=== PATIENT | male | born 1970 | race Caucasian/White ===

== ENCOUNTER 2017-10-03 17:57 | Inpatient (IN) | payer MEDICAID ==
[~2017-10-03] VITALS: Ht 172.7 cm; Wt 88.5 kg
[~2017-10-03 17:57] MED LIST: ATORVASTATIN CA40 MG ORAL; BUPROPION XL300 MG ORAL; CELEXA20 MG ORAL; CITALOPRAM HBR40 M1 ORAL; DIABETA2.5 MG ORAL; GABAPENTIN800 MG ORAL; HYDROCODON-ACE1 EA18 PO; IBUPROFEN200 MG ORAL; IBUPROFEN600 MG ORAL; LIDOCAINE700 M1 TP; MIRTAZAPINE15 M3 ORAL; NORCO 10-325 T1 EACH ORAL; NORCO 5-325 TA1 EACH ORAL; OMEPRAZOLE40 M1 ORAL; WELLBUTRIN XL150 M1 ORAL; ZOFRAN8 MG ORAL
[2017-10-03 18:20] LABS: BASOPHILS % (AUTO) 1.1 % (0.0-2.0); EOSINOPHILS % (AUTO) 2.6 % (0.0-3.0); HEMATOCRIT 38.6 % (42.0-52.0); HEMOGLOBIN 13.6 G/DL (14.2-18.0); LYMPHOCYTES % (AUTO) 27.3 % (20.0-45.0); MEAN CORPUSCULAR VOLUME 91 FL (80-99); PLATELET COUNT 252 K/UL (150-450); RED BLOOD COUNT 4.22 M/UL (4.70-6.10); RED CELL DISTRIBUTION WIDTH 13.6 % (11.6-14.8); WHITE BLOOD COUNT 8.2 K/UL (4.8-10.8)
[2017-10-03 18:27] LABS: ANION GAP 9 mmol/L (5-15); BLOOD UREA NITROGEN 16 mg/dL (7-18); CALCIUM 9.3 MG/DL (8.5-10.1); CARBON DIOXIDE 27 MMOL/L (21-32); CHLORIDE 103 MMOL/L (98-107); CREATININE 1.2 MG/DL (0.55-1.30); POTASSIUM 4.1 MMOL/L (3.5-5.1); SODIUM 139 MMOL/L (136-145)
[2017-10-03 18:38] LABS: ALANINE AMINOTRANSFERASE 31 U/L (12-78); ALBUMIN 4.6 G/DL (3.4-5.0); ALBUMIN/GLOBULIN RATIO 1.6 (1.0-2.7); ALKALINE PHOSPHATASE 56 U/L (46-116); ASPARTATE AMINO TRANSFERASE 14 U/L (15-37); BILIRUBIN,TOTAL 0.6 MG/DL (0.2-1.0)
--- NOTE | 2017-10-03 18:46 | Emergency Room Report ---
History of Present Illness General Chief Complaint: Chest Pain Source: Patient Present Illness HPI 47-year-old female with history of CAD p/w chest pain for 2 hours. Chest pain started while at rest. Localized to substernal area, no radiation to back or other areas, sharp in nature, gradual in onset, +SOB. Denies palpitations, diaphoresis, n/v. . Denies fever, chills, cough, abd pain. Denies trauma. Patient states that he has one stent, takes aspirin and Plavix, took one baby aspirin today, also took 1 nitroglycerin which helped with the pain. His last cath was 2015. Allergies: Coded Allergies: CYCLOBENZAPRINE (Verified Allergy, Unknown, 08/10/15) SULFA (SULFONAMIDE ANTIBIOTICS) (Verified Allergy, Unknown, 07/29/15) Uncoded Allergies: FLEXARIL (Allergy, Unknown, 04/25/15) SULFAS (Allergy, Unknown, 04/25/15) Patient History Past Medical History: see triage record Past Surgical History: none Pertinent Family History: none Reviewed Nursing Documentation: PMH: Agreed, PSxH: Agreed Nursing Documentation-PMH Past Medical History: No History, Except For Hx Hypertension: No Hx Pacemaker: No Hx Asthma: No Hx Diabetes: Yes - Type 2 Hx Cancer: No Hx Gastrointestinal Problems: No Hx Dialysis: No Hx Neurological Problems: No Hx Cerebrovascular Accident: No Hx Seizures: No Review of Systems All Other Systems: negative except mentioned in HPI Physical Exam Vital Signs Date Time Temp Pulse Resp B/P (MAP) Pulse Ox O2 Delivery O2 Flow Rate FiO2 10/03/17 18:02 97.9 71 20 133/76 97 Room Air 97.9 Sp02 EP Interpretation: reviewed, normal General Appearance: alert, GCS 15, non-toxic, moderate distress Head: normocephalic, atraumatic Eyes: bilateral eye normal inspection, bilateral eye PERRL, bilateral eye EOMI ENT: normal ENT inspection, normal pharynx, normal voice, moist mucus membranes Neck: normal inspection, full range of motion, supple Respiratory: normal inspection, lungs clear, normal breath sounds, no respiratory distress, no retraction, no wheezing, speaking full sentences, chest symmetrical Cardiovascular #1: normal inspection, regular rate, rhythm, no edema, normal capillary refill Cardiovascular #2: 2+ radial (R), 2+ radial (L) Gastrointestinal: normal inspection, non tender, soft, non-distended, no guarding Genitourinary: no CVA tenderness Musculoskeletal: normal inspection, back normal, normal range of motion, non- tender Neurologic: normal inspection, alert, oriented x3, responsive, motor strength/ tone normal, sensory intact, normal gait, speech normal Psychiatric: normal inspection, judgement/insight normal, memory normal Skin: normal inspection, normal color, no rash, warm/dry, well hydrated, normal turgor Medical Decision Making Diagnostic Impression: Primary Impression: ACS (acute coronary syndrome) ER Course 47-year-old male with chest pain DDX: ACS vs. CHF vs. pneumonia vs. gastritis/GERD vs. pneumothorax Plan: IV access, obtain labs including troponin, EKG, CXR ASA ER course: pt already took ASA at home given toradol for pain Patient has remained on a monitor, HD stable, chest pain improved. Disposition: Patient requires admission for chest pain. D/W hospitalist Dr Harrington Please note that this Emergency Department Report was dictated using Swypemaintenance carpenter technology software, occasionally this can lead to erroneous entry secondary to interpretation by the dictation equipment. EKG Diagnostic Results EP Interpretation: Yes Rate: normal Rhythm: NSR ST Segments: No acute changes ASA given to patient: Yes Rhythm Strip EP Interpretation: Yes Rate: 70 Rhythm: NSR, no PVCs, no ectopy Chest X-ray CXR: Ordered: Yes 1 view Indication: Chest pain EP interpretation: Yes Interpretation: No consolidation, no effusion, no PTX, no acute cardiopulmonary disease Impression: No acute disease Electronically signed by Miguel Hurst MD Laboratory Tests Test 10/03/17 18:05 White Blood Count 8.2 K/UL (4.8-10.8) Red Blood Count 4.22 M/UL (4.70-6.10) L Hemoglobin 13.6 G/DL (14.2-18.0) L Hematocrit 38.6 % (42.0-52.0) L Mean Corpuscular Volume 91 FL (80-99) Mean Corpuscular Hemoglobin 32.1 PG (27.0-31.0) H Mean Corpuscular Hemoglobin Concent 35.1 G/DL (32.0-36.0) Red Cell Distribution Width 13.6 % (11.6-14.8) Platelet Count 252 K/UL (150-450) Mean Platelet Volume 7.5 FL (6.5-10.1) Neutrophils (%) (Auto) 60.0 % (45.0-75.0) Lymphocytes (%) (Auto) 27.3 % (20.0-45.0) Monocytes (%) (Auto) 9.0 % (1.0-10.0) Eosinophils (%) (Auto) 2.6 % (0.0-3.0) Basophils (%) (Auto) 1.1 % (0.0-2.0) Sodium Level 139 MMOL/L (136-145) Potassium Level 4.1 MMOL/L (3.5-5.1) Chloride Level 103 MMOL/L (98-107) Carbon Dioxide Level 27 MMOL/L (21-32) Anion Gap 9 mmol/L (5-15) Blood Urea Nitrogen 16 mg/dL (7-18) Creatinine 1.2 MG/DL (0.55-1.30) Estimate Glomerular Filtration Rate > 60 mL/min (>60) Glucose Level 88 MG/DL (74-106) Calcium Level 9.3 MG/DL (8.5-10.1) Total Bilirubin 0.6 MG/DL (0.2-1.0) Aspartate Amino Transferase (AST) 14 U/L (15-37) L Alanine Aminotransferase (ALT) 31 U/L (12-78) Alkaline Phosphatase 56 U/L (46-116) Troponin I 0.000 ng/mL (0.000-0.056) Pro-B-Type Natriuretic Peptide 52 pg/mL (0-125) Total Protein 7.5 G/DL (6.4-8.2) Albumin 4.6 G/DL (3.4-5.0) Globulin 2.9 g/dL Albumin/Globulin Ratio 1.6 (1.0-2.7) Last Vital Signs Date Time Temp Pulse Resp B/P (MAP) Pulse Ox O2 Delivery O2 Flow Rate FiO2 10/03/17 18:25 71 20 Room Air 10/03/17 18:02 97.9 133/76 97 97.9 Miguel Hurst M.D. Oct 03, 2017 18:46
[2017-10-03] MEDS ORDERED: Ketorolac 30mg Inj IV ONE (19:00)
[2017-10-03] MEDS ORDERED: Aspirin Baby 81mg ORAL ONE (19:00)
[2017-10-03] MEDS ORDERED: ZOFRAN4 M3 ORAL (19:10)
[2017-10-03] MEDS ORDERED: ASPIRIN81 MG ORAL (19:17)
[2017-10-03] MEDS ORDERED: VITAMIN B-12500 MCG (19:18)
[2017-10-03] MEDS ORDERED: FERROUS SULFAT325 MG (19:21)
[2017-10-03] MEDS ORDERED: GINKGO BILOBA120 M1 (19:22)
[2017-10-03] MEDS ORDERED: Morphine Sulfate 4mg/ml Inj IVP ONE (20:15)
[2017-10-03 21:35] VITALS: BP 126/63
[2017-10-03 22:27] VITALS: BP 120/65
[2017-10-03] MEDS ORDERED: Nitroglycerin Patch 0.1mg TDERMAL PRN (23:30)
[2017-10-03] MEDS ORDERED: Morphine Sulfate 2mg/ml Inj IM PRN (23:30)
--- NOTE | 2017-10-04 11:00 | Diagnostic Imaging Report ---
Indication: Chest pain Comparison: 07/29/2015 A single view chest radiograph was obtained. Findings: Cardiomediastinal appearance is within normal limits for age. Pulmonary vascularity is appropriate. The diaphragmatic contour is smooth and costophrenic angles are sharp. No pleural effusions are identified. The bones are unremarkable. Impression: No acute findings
--- NOTE | 2017-10-05 14:32 | Discharge Summary ---
Discharge Summary Hospital Course Date of Admission Oct 03, 2017 at 20:34 Date of Discharge Oct 04, 2017 at 00:46 Admitting Diagnosis ACUTE CORONARY SYNDROME HPI Timothy Marti is a 47 year old male who was admitted on Oct 03, 2017 at 20:34 for Acute Coronary Syndrome Hospital Course [id number] Discharge Discharge Disposition Patient left AMA Discharge Diagnoses: Madeline Petersen NP Oct 05, 2017 14:31
--- NOTE | 2017-10-05 23:15 | Discharge Summary 2 SIG ---
DATE OF ADMISSION: 10/03/2017 DATE OF DISCHARGE: 10/04/2017 BRIEF HOSPITAL COURSE: The patient is a 47-year-old male with history of coronary artery disease, presented to the hospital for complaints of chest pain that occurred while at rest located at the substernal area with no radiation to back or other areas. It was described to be sharp in nature and had gradual onset with accompanying shortness of breath. No nausea. No vomiting. No diaphoresis. No palpitations. He was evaluated in the ED. EKG was in normal sinus rhythm. He was given aspirin. Chest x-ray showed no acute disease. Initial troponin was negative. He was planned admission to the telemetry under the service of Dr. Johnson. However, the patient signed out against medical advice from ED. FINAL DIAGNOSIS: Chest pain, possible acute coronary syndrome. DISPOSITION: The patient left AMA. Shashank Garcia M.D. I have been assigned to dictate discharge summary on this account and I was not involved in the patient's management. Madeline Petersen N.P. DR: ABDIRAHMAN JOB#: [id number] CC:
--- NOTE | 2017-10-11 16:10 | Cardiology Report ---
APPROVED REPORT EKG Measurement Heart [id number] Normal sinus rhythm Normal ECG
== END 2017-10-04 00:46 | disposition left against medical advice (07) | DRG 198 ==
LOC: EMR 18:30 → 2E 20:34 → EDBEDREQ 21:17
DX: I25.110 Atherosclerotic heart disease of native coronary artery with unstable angina pectoris (principal); Z88.2 Allergy status to sulfonamides; Z53.21 Procedure and treatment not carried out due to patient leaving prior to being seen by health care provider; Z79.82 Long term (current) use of aspirin; Z98.61 Coronary angioplasty status
CPT/HCPCS: 36415; 71045; 80053; 83880; 84484; 85025; 93005; 96372; 96374; 96375; 99284

== ENCOUNTER 2017-10-05 12:09 | Emergency (ER) | payer MEDICAID ==
[~2017-10-05] VITALS: Ht 170.2 cm; Wt 88.5 kg
[~2017-10-05 12:09] MED LIST changes: +ASPIRIN81 MG ORAL; +FERROUS SULFAT325 MG; +GINKGO BILOBA120 M1; +VITAMIN B-12500 MCG; +ZOFRAN4 M3 ORAL
--- NOTE | 2017-10-05 12:20 | Emergency Room Report ---
History of Present Illness General Chief Complaint: Chest Pain Source: Patient, EMS Present Illness HPI 47-year-old male, history of CAD, 1 stent, p/w chest pain for 2 hours. Patient states that he was just sitting at rest, chest pain left-sided radiating to arm. He took 3 baby aspirin. Helped somewhat. Patient was here in the emergency room 2 days ago, was admitted for ACS, however patient left AGAINST MEDICAL ADVICE Allergies: Coded Allergies: CYCLOBENZAPRINE (Verified Allergy, Unknown, 08/10/15) SULFA (SULFONAMIDE ANTIBIOTICS) (Verified Allergy, Unknown, 07/29/15) Uncoded Allergies: FLEXARIL (Allergy, Unknown, 04/25/15) SULFA (Allergy, Unknown, 10/05/17) SULFAS (Allergy, Unknown, 04/25/15) Patient History Past Medical History: see triage record Past Surgical History: none Pertinent Family History: none Reviewed Nursing Documentation: PMH: Agreed, PSxH: Agreed Nursing Documentation-PMH Past Medical History: No History, Except For Hx Cardiac Problems: Yes - [place]/ stents Hx Hypertension: No Hx Pacemaker: No Hx Asthma: No Hx Diabetes: Yes Hx Cancer: No Hx Gastrointestinal Problems: No Hx Dialysis: No History Of Psychiatric Problem: Yes - Depression Hx Neurological Problems: No Hx Cerebrovascular Accident: No Hx Seizures: No Review of Systems All Other Systems: negative except mentioned in HPI Physical Exam Vital Signs Date Time Temp Pulse Resp B/P (MAP) Pulse Ox O2 Delivery O2 Flow Rate FiO2 10/05/17 11:47 97.5 75 16 120/73 96 Room Air 97.5 Sp02 EP Interpretation: reviewed, normal General Appearance: mild distress Head: normocephalic, atraumatic Eyes: bilateral eye normal inspection, bilateral eye PERRL, bilateral eye EOMI ENT: normal ENT inspection, normal pharynx, normal voice, moist mucus membranes Neck: normal inspection, full range of motion, supple Respiratory: normal inspection, lungs clear, normal breath sounds, no respiratory distress, no retraction, no wheezing, speaking full sentences, chest symmetrical Cardiovascular #1: normal inspection, regular rate, rhythm, no edema, normal capillary refill Cardiovascular #2: 2+ radial (R), 2+ radial (L) Gastrointestinal: normal inspection, non tender, soft, non-distended, no guarding Genitourinary: no CVA tenderness Musculoskeletal: normal inspection, back normal, normal range of motion, non- tender Neurologic: normal inspection, alert, oriented x3, responsive, motor strength/ tone normal, sensory intact, normal gait, speech normal Psychiatric: normal inspection, judgement/insight normal, memory normal Skin: normal inspection, normal color, no rash, warm/dry, well hydrated, normal turgor Medical Decision Making Diagnostic Impression: Primary Impression: Chest pain ER Course 47-year-old male with chest pain Recently admitted for ACS and then left AGAINST MEDICAL ADVICE DDX: ACS vs. CHF vs. pneumonia vs. gastritis/GERD vs. pneumothorax Plan: IV access, obtain labs including troponin, EKG, CXR Patient already took 3 baby aspirin ER course: Troponin is negative, patient's vital signs have been normal. I offered the patient pain medication, states that nothing works except for morphine He was complaining of persistent pain, states that he wanted to leave AGAINST MEDICAL ADVICE, he was ambulating around the emergency room talking ptosis her on the phone. Was very angry, not in any respiratory distress Calmly told patient that he has to stay in the emergency room and be admitted for further workup He states that he wants to leave to go to another ED Patient is clinically sober, is free from from distracting injury, and has intact judgement and capacity to decide to leave against medical advice. Patient verbalized understanding of my concern and my need to do admit patient and do further workup, but patient states that he wants opiates only or else he will leave. I explained to patient the risks of leaving AMA and patient informed that if they he/she leaves, they could get worse, he could become become critically ill, possibly become disabled or . Patient verbalized back to me understanding of these risks but still wants to leave. Disposition: Patient left AMA Please note that this Emergency Department Report was dictated using Yatangolegal project manager technology software, occasionally this can lead to erroneous entry secondary to interpretation by the dictation equipment. EKG Diagnostic Results EP Interpretation: Yes Rate: normal Rhythm: NSR ST Segments: No acute changes ASA given to patient: Y Rhythm Strip EP Interpretation: Yes Rate: 70 Rhythm: NSR, no PVCs, no ectopy Chest X-ray CXR: Ordered: Yes 1 view Indication: Chest pain EP interpretation: Yes Interpretation: No consolidation, no effusion, no PTX, no acute cardiopulmonary disease Impression: No acute disease Electronically signed by Miguel Hurst MD Laboratory Tests Test 10/05/17 12:15 White Blood Count 7.3 K/UL (4.8-10.8) Red Blood Count 4.21 M/UL (4.70-6.10) L Hemoglobin 13.8 G/DL (14.2-18.0) L Hematocrit 38.6 % (42.0-52.0) L Mean Corpuscular Volume 92 FL (80-99) Mean Corpuscular Hemoglobin 32.8 PG (27.0-31.0) H Mean Corpuscular Hemoglobin Concent 35.8 G/DL (32.0-36.0) Red Cell Distribution Width 13.5 % (11.6-14.8) Platelet Count 223 K/UL (150-450) Mean Platelet Volume 8.1 FL (6.5-10.1) Neutrophils (%) (Auto) 63.5 % (45.0-75.0) Lymphocytes (%) (Auto) 24.9 % (20.0-45.0) Monocytes (%) (Auto) 8.4 % (1.0-10.0) Eosinophils (%) (Auto) 2.3 % (0.0-3.0) Basophils (%) (Auto) 0.8 % (0.0-2.0) Sodium Level 140 MMOL/L (136-145) Potassium Level 3.9 MMOL/L (3.5-5.1) Chloride Level 105 MMOL/L (98-107) Carbon Dioxide Level 24 MMOL/L (21-32) Anion Gap 11 mmol/L (5-15) Blood Urea Nitrogen 14 mg/dL (7-18) Creatinine 1.0 MG/DL (0.55-1.30) Estimate Glomerular Filtration Rate > 60 mL/min (>60) Glucose Level 76 MG/DL (74-106) Calcium Level 8.7 MG/DL (8.5-10.1) Total Bilirubin 0.6 MG/DL (0.2-1.0) Aspartate Amino Transferase (AST) 14 U/L (15-37) L Alanine Aminotransferase (ALT) 31 U/L (12-78) Alkaline Phosphatase 90 U/L (46-116) Troponin I 0.000 ng/mL (0.000-0.056) Pro-B-Type Natriuretic Peptide 41 pg/mL (0-125) Total Protein 7.3 G/DL (6.4-8.2) Albumin 3.9 G/DL (3.4-5.0) Globulin 3.4 g/dL Albumin/Globulin Ratio 1.1 (1.0-2.7) Last Vital Signs Date Time Temp Pulse Resp B/P (MAP) Pulse Ox O2 Delivery O2 Flow Rate FiO2 10/05/17 11:47 97.5 75 16 120/73 96 Room Air 97.5 Disposition: AGAINST MEDICAL ADVICE Condition: Stable Miguel Hurst M.D. Oct 05, 2017 12:20
[2017-10-05 12:35] VITALS: BP 120/73
[2017-10-05 12:48] LABS: ANION GAP 11 mmol/L (5-15); BLOOD UREA NITROGEN 14 mg/dL (7-18); CALCIUM 8.7 MG/DL (8.5-10.1); CARBON DIOXIDE 24 MMOL/L (21-32); CHLORIDE 105 MMOL/L (98-107); POTASSIUM 3.9 MMOL/L (3.5-5.1); SODIUM 140 MMOL/L (136-145)
[2017-10-05 12:59] LABS: ALBUMIN 3.9 G/DL (3.4-5.0); ALBUMIN/GLOBULIN RATIO 1.1 (1.0-2.7); ALKALINE PHOSPHATASE 90 U/L (46-116); BILIRUBIN,TOTAL 0.6 MG/DL (0.2-1.0)
[2017-10-05 13:03] LABS: BASOPHILS % (AUTO) 0.8 % (0.0-2.0); EOSINOPHILS % (AUTO) 2.3 % (0.0-3.0); HEMATOCRIT 38.6 % (42.0-52.0); HEMOGLOBIN 13.8 G/DL (14.2-18.0); LYMPHOCYTES % (AUTO) 24.9 % (20.0-45.0); MEAN CORPUSCULAR VOLUME 92 FL (80-99); MONOCYTES % (AUTO) 8.4 % (1.0-10.0); NEUTROPHILS % (AUTO) 63.5 % (45.0-75.0); PLATELET COUNT 223 K/UL (150-450); RED BLOOD COUNT 4.21 M/UL (4.70-6.10); RED CELL DISTRIBUTION WIDTH 13.5 % (11.6-14.8); WHITE BLOOD COUNT 7.3 K/UL (4.8-10.8)
[2017-10-05 13:09] LABS: ALANINE AMINOTRANSFERASE 31 U/L (12-78); ASPARTATE AMINO TRANSFERASE 14 U/L (15-37)
[2017-10-05 13:17] VITALS: BP 120/73
--- NOTE | 2017-10-05 13:34 | Diagnostic Imaging Report ---
Indication: Chest pain Comparison: 10/03/2017 A single view chest radiograph was obtained. Findings: Cardiomediastinal appearance is within normal limits for age. Pulmonary vascularity is appropriate. The diaphragmatic contour is smooth and costophrenic angles are sharp. No pleural effusions are identified. The bones are unremarkable. Impression: No acute findings
--- NOTE | 2017-10-08 16:37 | Cardiology Report ---
APPROVED REPORT EKG Measurement Heart [id number] Normal sinus rhythm Normal ECG
== END 2017-10-05 13:18 | disposition left against medical advice (07) ==
LOC: EDBD 12:09 → EMR 12:15
DX: I25.10 Atherosclerotic heart disease of native coronary artery without angina pectoris (principal); I25.2 Old myocardial infarction; Z95.5 Presence of coronary angioplasty implant and graft; E11.9 Type 2 diabetes mellitus without complications; Z88.2 Allergy status to sulfonamides; Z88.8 Allergy status to other drugs, medicaments and biological substances
CPT/HCPCS: 36415; 71045; 80053; 83880; 84484; 85025; 93005; 99284

== ENCOUNTER 2017-10-05 16:23 | Emergency (ER) | payer MEDICAID ==
[~2017-10-05] VITALS: Ht 172.7 cm; Wt 81.6 kg
[2017-10-05 16:25] VITALS: BP 145/71
--- NOTE | 2017-10-05 16:31 | Emergency Room Report ---
History of Present Illness General Chief Complaint: Chest Pain Source: Patient, EMS Present Illness HPI 47-year-old male riding by EMS from [facility] ([facility] for chest pain. Patient states he had EKG done there which showed "irregularities" and was advised by [employer] to come to [place] because [facility] is closed and there was traffic. He was here earlier in the day also for chest pain and patient ldft AMA when he wasn't given narcotics for chest pain. troponin at that time was 0. Patient was also here 2 days ago for similar, Patient was admitted for ACS rule out, troponin at that time was 0 as well. Patient states he left the floor because he was pushing his call button and no nurses were responding him. He states he' s had more than 10 in the past, has a stent placed in the RCA. states pain is constant for last couple days, not worse with movement or lying down. Denies associated shortness of breath, cough, abdominal pain, nausea or vomiting to name a few. States that Toradol and Tylenol did not help his pain. Multiple requests made for morphine. Allergies: Coded Allergies: CYCLOBENZAPRINE (Verified Allergy, Unknown, 08/10/15) SULFA (SULFONAMIDE ANTIBIOTICS) (Verified Allergy, Unknown, 07/29/15) Uncoded Allergies: FLEXARIL (Allergy, Unknown, 04/25/15) SULFA (Allergy, Unknown, 10/05/17) SULFAS (Allergy, Unknown, 04/25/15) Patient History Past Medical History: other - ?CAD Past Surgical History: none Pertinent Family History: none Social History: Denies: smoking, alcohol use, drug use Immunizations: UTD Reviewed Nursing Documentation: PMH: Agreed, PSxH: Agreed Nursing Documentation-PMH Hx Hypertension: No Hx Pacemaker: No Hx Asthma: No Hx Diabetes: Yes - Type 2 Hx Cancer: No Hx Gastrointestinal Problems: No Hx Dialysis: No Hx Neurological Problems: No Hx Cerebrovascular Accident: No Hx Seizures: No Review of Systems All Other Systems: negative except mentioned in HPI Physical Exam Vital Signs Date Time Temp Pulse Resp B/P (MAP) Pulse Ox O2 Delivery O2 Flow Rate FiO2 10/05/17 16:09 97.1 65 18 121/62 98 Room Air 97.2 Sp02 EP Interpretation: reviewed, normal General Appearance: normal inspection, well appearing, no apparent distress, alert, GCS 15, non-toxic Head: normocephalic, atraumatic Eyes: bilateral eye PERRL, bilateral eye EOMI ENT: normal ENT inspection, hearing grossly normal, normal pharynx, no angioedema, normal voice, TMs + canals normal, uvula midline, moist mucus membranes Neck: normal inspection, full range of motion, supple, thyroid normal, no meningismus, no bony tend Respiratory: normal inspection, lungs clear, normal breath sounds, no rhonchi, no respiratory distress, no retraction, no accessory muscle use, no wheezing, speaking full sentences Cardiovascular #1: regular rate, rhythm, no edema, no JVD, normal capillary refill Gastrointestinal: normal inspection, normal bowel sounds, non tender, soft, no mass, no peritonitis, non-distended, no guarding, no hernia, no pulsatile mass Genitourinary: no CVA tenderness Musculoskeletal: normal inspection, back normal, normal range of motion, no calf tenderness, pelvis stable, Lucian's Sign negative Neurologic: normal inspection, alert, oriented x3, responsive, hcc coders III-XII nml as tested, motor strength/tone normal, cerebellar normal, normal gait, speech normal Psychiatric: normal inspection, judgement/insight normal, mood/affect normal, no suicidal/homicidal ideation, no delusions Skin: normal inspection, normal color, no rash Lymphatic: normal inspection, no adenopathy Medical Decision Making Diagnostic Impression: Primary Impression: Chest pain Qualified Codes: R07.9 - Chest pain, unspecified ER Course vital signs stable, afebrile History of chest pain for 4 days. 2 negative troponins already this week Multiple requests made for morphine in ED. Patient stated "you're fucking lying to me" when I informed him that we do not automatically give morphine/narcotics for chest pain Patient became immediately upset, cursed me out, walked out of ER with EMS- given IV. [employer] contacted. Patient was not here long enough to sit for ECG Would not wait to sign discharge papers States we "stole" his phone supervisor plate pasting, but we had it in drawer, and was returned to him - then he walked out. Last Vital Signs Date Time Temp Pulse Resp B/P (MAP) Pulse Ox O2 Delivery O2 Flow Rate FiO2 10/05/17 16:09 97.1 65 18 121/62 98 Room Air 97.2 Status: improved Disposition: AGAINST MEDICAL ADVICE RANDY MARINO M.D. Oct 05, 2017 16:31
== END 2017-10-05 19:46 | disposition left against medical advice (07) ==
LOC: EDBD 16:23 → EMR 17:32
DX: R07.9 Chest pain, unspecified (principal); E11.9 Type 2 diabetes mellitus without complications; Z88.2 Allergy status to sulfonamides; Z88.8 Allergy status to other drugs, medicaments and biological substances
CPT/HCPCS: 99283; 99284